=== PATIENT | female | born 1935 | race Caucasian/White ===

== ENCOUNTER 2018-04-23 20:01 | Inpatient (IN) | payer MEDICARE, BC ==
[2018-04-23] MEDS ORDERED: Ondansetron PF 4 MG/2 ML Vial ONE (20:37)
[2018-04-23] MEDS ORDERED: Morphine 2 MG/ML SYRINGE ONE (20:37)
[2018-04-23 21:00] LABS: #Eosinphils 0.3 thou/uL (0.0-0.7); #Lymphocytes 1.3 thou/uL (1.20-3.40); #Monocytes 0.5 thou/uL (0.11-0.59); #Neutrophils 5.6 thou/uL (1.40-6.50); %Basophils 0.3 % (0.0-1.0); %Eosinophils 3.8 % (0.0-10.0); %Lymphocytes 16.8 % (21.0-51.0); %Monocytes 5.9 % (0.0-10.0); %Neutrophils 73.2 % (42.0-75.0); Hemoglobin 10.2 g/dL (12.0-16.0); Mean Corpuscular HGB CONC 32.8 g/dL (32.0-36.0); Mean Corpuscular Hemoglobin 30.3 pg (27.0-31.0); Mean Corpuscular Volume 92.4 fL (78.0-98.0); Mean Platelet Volume 7.1 fL (7.4-10.4); Platelet Count 181 thou/uL (130-400); RBC Distribution Width 13.2 % (11.5-14.5); Red Blood Cell (RBC) Count 3.37 mill/uL (4.20-5.40); White Blood Cell (WBC) Count 7.6 thou/uL (4.8-10.8)
[2018-04-23 21:06] LABS: INR-International Normal Ratio 1.1; Prothrombin Time 14.6 SEC (12.0-14.7)
[2018-04-23] MEDS ORDERED: Morphine 4 MG/ML VIAL ONE (21:20)
[2018-04-23 21:21] LABS: ALT (SGPT) 12 U/L (8-55); AST (SGOT) 19 U/L (5-34); Albumin 3.1 g/dL (3.4-4.8); Alkaline Phosphatase 93 U/L (40-150); Anion Gap 8 mmol/L (10-20); BUN (Urea Nitrogen) 18 mg/dL (9.8-20.1); Bilirubin, Total 0.4 mg/dL (0.2-1.2); CK (CPK) 51 U/L (29-168); Calc. Creatinine Clearance 0 mL/min (70-130); Calcium 8.7 mg/dL (7.8-10.44); Carbon Dioxide 26 mmol/L (23-31); Chloride 103 mmol/L (98-107); Estimated GFR-MDRD 62; Globulin 3.1 g/dL (2.4-3.5); Glucose 143 mg/dL (83-110); Potassium 3.2 mmol/L (3.5-5.1); Protein, Total 6.2 g/dL (6.0-8.3); Sodium 134 mmol/L (136-145)
--- NOTE | 2018-04-23 22:04 | RAD ---
FRONTAL RADIOGRAPH PELVIS: 04/23/18 COMPARISON: None. HISTORY: Fall, trauma, pain. FINDINGS: The pelvic ring is intact. No widening of the sacroiliac joints or pubic symphysis. Femoral heads pro ject normally over their respective acetabulum. No displaced fracture is appreciated. There is multil evel degenerative change within the lumbar spine. IMPRESSION: No displaced fracture seen. POS: [facility]
--- NOTE | 2018-04-23 22:06 | RAD ---
FRONTAL AND LATERAL IMAGING OF RIGHT FEMUR 04/23/18 COMPARISON: None. HISTORY: Injury, trauma, pain. FINDINGS: There is a total knee arthroplasty on the right. There is a comminuted obliquely oriented distal righ t femoral shaft fracture at the superior aspect of the distal femoral component. There is mild fish house worker ior angulation of the distal fracture fragment. IMPRESSION: Obliquely oriented mildly angulated distal right femoral shaft fracture at the proximal aspect of the right femoral component. POS: [facility]
[2018-04-23] MEDS ORDERED: Fentanyl 100 MCG/2 ML VIAL ONE (22:14)
--- NOTE | 2018-04-23 22:15 | RAD ---
FRONTAL RADIOGRAPH CHEST PORTABLE UPRIGHT: 04/23/18 COMPARISON: 06/03/09. HISTORY: Preoperative patient. FINDINGS: No pneumothorax, pleural fluid, focal consolidation or alveolar edema. Heart and mediastinal contours are stable. There is atherosclerotic calcification of the aortic arch. IMPRESSION: No acute findings. POS: [facility]
[2018-04-23 22:42] LABS: CKMB 2.7 ng/mL (0-6.6); Troponin I Less than 0.010 ng/mL (< 0.028)
[2018-04-23] MEDS ORDERED: Ondansetron PF 4 MG/2 ML Vial IVP PRN (22:45)
[2018-04-23] MEDS ORDERED: Ondansetron ODT 4 MG TAB PO PRN (22:45)
[2018-04-23] MEDS ORDERED: Dextrose 5% in Water 1,000 ML IV PRN (22:45)
[2018-04-23] MEDS ORDERED: Dextrose 50% Abboject 50 ML SYRINGE SLOW IVP PRN (22:45)
[2018-04-23] MEDS ORDERED: Ondansetron ODT 8 MG TAB ONE (23:38)
[2018-04-24] MEDS: traMADol HCl 50 MG TAB PO SCH ×5 (00:18→23:04)
[2018-04-24] MEDS: Sodium Chloride 0.9% 1,000 ML IV SCH ×3 (00:21→20:38)
[2018-04-24] MEDS: Acetaminophen 1,000 MG in Premix Bag 1 BAG IVPB SCH ×5 (00:25→23:04)
[2018-04-24] MEDS: Morphine 2 MG/ML SYRINGE IVP PRN (00:25)
[2018-04-24] MEDS: Ketorolac Tromethamine 30 MG/ML VIAL IVP SCH ×5 (00:25→23:04)
[2018-04-24 00:55] VITALS: BMI 24.9
[2018-04-24 06:06] LABS: #Eosinphils 0.2 thou/uL (0.0-0.7); #Lymphocytes 0.9 thou/uL (1.20-3.40); #Monocytes 0.3 thou/uL (0.11-0.59); #Neutrophils 2.7 thou/uL (1.40-6.50); %Basophils 0.2 % (0.0-1.0); %Eosinophils 4.5 % (0.0-10.0); %Lymphocytes 22.7 % (21.0-51.0); %Monocytes 7.8 % (0.0-10.0); %Neutrophils 64.8 % (42.0-75.0); Hemoglobin 9.2 g/dL (12.0-16.0); Mean Corpuscular HGB CONC 32.9 g/dL (32.0-36.0); Mean Corpuscular Hemoglobin 30.5 pg (27.0-31.0); Mean Corpuscular Volume 92.6 fL (78.0-98.0); Mean Platelet Volume 7.3 fL (7.4-10.4); Platelet Count 164 thou/uL (130-400); RBC Distribution Width 13.1 % (11.5-14.5); White Blood Cell (WBC) Count 4.1 thou/uL (4.8-10.8)
--- NOTE | 2018-04-24 06:11 | HP ---
TRAUMA SURGEON: Dr. Samaniego. TRAUMA ACTIVATION: Not applicable. HISTORY OF PRESENT ILLNESS: This is an 83-year-old female, who presented to [place] [facility], status post fall. Per patient, she was ambulating in her house when her right lower extremity gave out and she fell, landing primarily on her hip and left elbow. The patient denies head trauma or loss of consciousness. She had immediate onset of right lower extremity pain. She was seen and evaluated in the emergency room and found to have a right mid shaft femur fracture. The patient is 1 day status post bilateral hand surgery with Dr. Streeter at [facility] and has been taking both [place] 5/325 and Ultram. Otherwise, the patient states that she was in her normal state of health prior to her fall. She denies any dizziness, vertigo, chest pain, shortness of breath, or palpitations. Upon my evaluation, the patient has a chief complaint of right lower extremity pain, rated 8/10. ALLERGIES: NONE. HOME MEDICATIONS: Include, 1. Aspirin 81 mg daily. 2. Multivitamin. 3. Ramipril 2.5 mg. 4. Triamterene/hydrochlorothiazide 37.5/25. 5. Zantac. 6. [place] 5/325 q.4 hours. PAST MEDICAL HISTORY: Hypertension, rheumatoid arthritis, osteoarthritis, and left middle finger tumor. PAST SURGICAL HISTORY: Left middle finger tumor removal, right index finger prosthesis, right knee replacement x2, left femur surgery, appendectomy, cholecystectomy, and left wrist surgery. SOCIAL HISTORY: The patient lives at home with her . She uses a walker and a cane for ambulation. She denies alcohol, tobacco, or illicit drug use. FAMILY HISTORY: Significant for mother from leukemia and a brother from pancreatic cancer. REVIEW OF SYSTEMS: A 10-point review of systems was performed and negative except as indicated in the HPI. PHYSICAL EXAMINATION: VITAL SIGNS: Temperature 97.6, pulse 78, respirations 16, O2 sat 99% on room air, and blood pressure 111/65. GENERAL: Elderly-appearing female, in no acute distress, resting in bed, drowsy secondary to pain medication. HEENT: Head, normocephalic and atraumatic. Eyes, pupils are PERRL. Extraocular movements are intact. NECK: Supple. Trachea is midline. There is no midline tenderness to palpation. CHEST: Atraumatic. Nontender to palpation. Normal work of breathing. Symmetric rise. LUNGS: Clear to auscultation bilaterally. CARDIOVASCULAR: Regular rate and rhythm. No obvious murmurs, rubs, or gallops. GI: Abdomen is soft, atraumatic, nontender, and nondistended. Bowel sounds are positive. MUSCULOSKELETAL: Pelvis is stable. Back exam is reported as being within normal limits. EXTREMITIES: Left upper extremity with a skin tear to the left elbow, which has been dressed. There is a left middle finger orthopedic dressing, which is clean, dry, and intact. Right upper extremity orthopedic dressing is clean, dry, and intact. Left lower extremity within normal limits. Right lower extremity is shortened and externally rotated. NEURO: GCS is 15. No focal deficit is noted. LABORATORY FINDINGS: WBC 7.6, hemoglobin 10.2, hematocrit 31.1, and platelet count 181. INR is 1.1. Sodium 134, potassium 3.2, chloride 103, carbon dioxide 26, BUN 18, creatinine 0.87, and glucose 143. AST and ALT within normal limits. Troponin less than 0.010. EKG with sinus rhythm and nonspecific T-wave abnormality. RADIOGRAPHIC FINDINGS: X-ray of the chest was negative for acute cardiopulmonary process, but did show aortic calcification. X-ray of the pelvis was negative for acute fracture or dislocation. X-ray of the femur demonstrated distal right femoral shaft fracture. ASSESSMENT: 1. Status post mechanical fall. 2. Right distal femur fracture. 3. Acute traumatic pain. 4. History of hypertension. 5. Recent bilateral hand surgery, on narcotic pain medication. 6. History of rheumatoid arthritis and osteoarthritis. PLAN: Admit to Trauma Services. Orthopedic Surgery has been notified of the patient and plan for operative intervention tomorrow. The patient should be n.p.o. after midnight. Gentle IV fluid hydration. Pain management with p.o. and IV analgesics. Postoperative PT and OT. DVT and gastritis prophylaxis when appropriate. Plan for admission was discussed with the patient and family at bedside, and all questions were answered at the time of this dictation. The patient has an [id number] do not resuscitate and advance directives. This will be reflected in the chart. Trauma attending has been notified of admission. Job ID: [id number]
[2018-04-24 06:15] LABS: Anion Gap 8 mmol/L (10-20); BUN (Urea Nitrogen) 17 mg/dL (9.8-20.1); Calc. Creatinine Clearance 52 mL/min (70-130); Calcium 8.5 mg/dL (7.8-10.44); Carbon Dioxide 26 mmol/L (23-31); Chloride 103 mmol/L (98-107); Estimated GFR-MDRD 62; Glucose 105 mg/dL (83-110); Magnesium 1.6 mg/dL (1.6-2.6); Phosphorus 3.1 mg/dL (2.3-4.7); Potassium 3.6 mmol/L (3.5-5.1); Sodium 133 mmol/L (136-145)
[2018-04-24] MEDS ORDERED: CEFAZOLIN/Water 2 GM/20 ML SYRINGE SLOW IVP SCH (07:30)
[2018-04-24] MEDS ORDERED: CEFAZOLIN 2 GM/50 ML-DEXTROSE 2 GM in Premix Bag 1 BAG IVPB SCH (07:45)
[2018-04-24] MEDS ORDERED: CEFAZOLIN 2 GM/50 ML BAG ONE (08:32)
--- NOTE | 2018-04-24 08:34 | CON ---
DATE OF CONSULTATION: 04/24/2018 BRIEF HISTORY OF PRESENT ILLNESS: The patient is a pleasant 83-year-old lady who presented to the [facility] Room on the evening of 04/23/2018 following a fall at her home. She reports that she was ambulating when her right lower leg gave out and she fell. She landed on her hip and elbow. Upon evaluation, she was found to have significant pain at the distal thigh with mild deformity. X-ray was obtained and revealed a periprosthetic distal femur fracture with displacement. Of note, the patient is also 1 day status post bilateral hand surgery with Dr. Dwight Streeter. She currently is on [place] and Ultram. The patient denies any dizziness, shortness of breath or chest pain. PAST MEDICAL HISTORY: Remarkable for hypertension, rheumatoid arthritis, and osteoarthritis. PAST SURGICAL HISTORY: Includes excision of mass from left long finger, right index finger prosthesis, right knee replacement x2 with the last one in 1990, appendectomy, cholecystectomy, left wrist surgery as well as left total knee arthroplasty. MEDICATIONS: Include: 1. Aspirin. 2. Ramipril. 3. Triamterene/hydrochlorothiazide. 4. Zantac. 5. [place]. ALLERGIES: NONE KNOWN. SOCIAL HISTORY: She lives with her of 67 years in a private residence. She uses a walker and/or cane for ambulation. She denies alcohol, drug use or cigarette smoking. FAMILY HISTORY: Noncontributory. REVIEW OF SYSTEMS: The patient denies recent fevers, chills or sweats. She denies chest pain or shortness of breath. She denies numbness or tingling in the lower extremities. PHYSICAL EXAMINATION: VITAL SIGNS: She was found to have a temperature of 97.8, heart rate of 74, respiratory rate of 16 and a blood pressure of 99/60. HEENT: Atraumatic, normocephalic. HEART: Regular rate and rhythm without murmur. LUNGS: Clear to auscultation with good breath sounds bilaterally. Chest wall is nontender. ABDOMEN: Soft and nontender with normal bowel sounds. PELVIS: Stable to compression. EXTREMITIES: Remarkable for a left upper extremity with a small skin tear at the left elbow. She also has her long finger with a postoperative dressing from her surgery yesterday. The right upper extremity is in a bulky short-arm splint with the index finger also wrapped into this dressing. The left lower extremity is remarkable for no deformity. The right lower extremity is remarkable for some shortening and slight angulation at the distal femur. She has pain and swelling in this area. Distal neurovascular exam is intact with normal subjective sensation. She has a 2+ dorsalis pedis pulse. LABORATORY DATA: White count is 7.6, hematocrit 31.1 and platelets 181,000. Her INR is 1.1. Her chemistry is roughly within normal limits. DIAGNOSTIC STUDIES: Chest x-ray negative for acute cardiopulmonary process. X-ray of the pelvis also without evidence of fracture. A 2-view x-ray of the right femur remarkable for a periprosthetic distal femur fracture with comminution and some angulation. The femoral component has a short stem that was cemented in place. The distal most portion of bone still appears to be firmly affixed to the femoral component of her knee replacement. ASSESSMENT: An 83-year-old lady, status post ground level fall sustaining right periprosthetic distal femur fracture. PLAN: At this time, the patient has been admitted to the Trauma Service. Today, I had a long discussion with the patient, her and son, who were at the bedside during this exam regarding the nature of her injury as well as proposed treatment options. At this time, I proposed proceeding with an open reduction and internal fixation with plate stabilization given the fact that the prosthetic component will not allow for a retrograde nail and the fracture is far enough distal that I believe plate stabilization is more appropriate. Today, we also discussed risks and benefits. Risks include, but are not limited to, bleeding, infection, DVT, PE, nonunion, malunion, loss of limb or life. They appear to understand and do wish to proceed. Consent will be obtained on the day prior to surgery. Job ID: [id number]
[2018-04-24] MEDS ORDERED: Fentanyl 100 MCG/2 ML VIAL ONE ×3 (08:41→12:17)
[2018-04-24] MEDS: Famotidine/PF 20 mg/2ml Vial SLOW IVP SCH ×2 (08:41→20:38)
[2018-04-24] MEDS ORDERED: Ketamine 50 MG/ML (10ML VIAL) ONE (09:02)
[2018-04-24] MEDS ORDERED: Promethazine HCl 25 MG/ML VIAL IM PRN (10:24)
[2018-04-24] MEDS ORDERED: Ondansetron HCl/PF 4 MG/2 ML Vial IVP PRN (10:24)
[2018-04-24] MEDS ORDERED: Promethazine HCl 25 MG/ML VIAL SLOW IVP PRN (10:24)
[2018-04-24] MEDS ORDERED: PHENYLEPHRINE-NS 100 MCG/ML 10 ML SYRINGE ONE (11:03)
[2018-04-24] MEDS ORDERED: Ondansetron PF 4 MG/2 ML Vial ONE (11:03)
[2018-04-24] MEDS ORDERED: Glycopyrrolate 0.2 MG/ML 5 ML SYRINGE ONE (11:03)
[2018-04-24] MEDS ORDERED: Lidocaine 1% PF 5 ML VIAL ONE (11:03)
--- NOTE | 2018-04-24 12:27 | RAD ---
SIX FLUOROSCOPIC SPOT IMAGES OF THE RIGHT FEMUR: COMPARISON: Right femur radiograph dated 04/23/2018. FINDINGS: There has been interval placement of a long-leaf lateral Lis plate and screw construct fixating the p eriprosthetic distal femur fracture. Fracture line is near anatomic. Instrumentation projects in th e expected position. IMPRESSION: Interval open reduction internal fixation of the periprosthetic right distal femoral fracture. POS: [facility]
[2018-04-24] MEDS ORDERED: Chloraseptic Spray 180 ml Bottle PO PRN (15:13)
[2018-04-24] MEDS: CEFAZOLIN 2 GM/50 ML BAG IVPB SCH ×2 (15:19→23:04)
[2018-04-24] MEDS: traMADol HCl 50 MG TAB PO PRN (15:19)
[2018-04-24] MEDS ORDERED: Hydrocortisone Sod Succ/PF 100 mg/2 ml Vial IVP SCH (16:00)
[2018-04-24] MEDS ORDERED: Sodium Chloride 0.9% 500 ML IV SCH (16:00)
--- NOTE | 2018-04-24 17:40 | HP ---
CHIEF COMPLAINT: Fall. HISTORY: This is an 83-year-old female, who had recently had bilateral hand surgery on Friday. Apparently, she was a little busy. was cooking a meal for her. He said it was ready. She got up, she tripped and fell and hit her right side. Complains mainly of right hip pain. PAST MEDICAL HISTORY: Significant for rheumatoid arthritis, osteoarthritis, diabetes, and hypertension. She has a history of DVT and PE. PAST SURGICAL HISTORY: She has had hand surgery, cholecystectomy, appendectomy, cataract surgery, right knee surgery, and left leg fracture repair. MEDICATIONS: 1. Aspirin. 2. Multivitamins. 3. Ramipril. 4. Triamterene and hydrochlorothiazide. 5. Zantac. 6. [place]. SOCIAL HISTORY: She lives at home with her . She uses a walker and a cane for ambulation. No alcohol or tobacco. FAMILY HISTORY: Leukemia and pancreatic cancer. PHYSICAL EXAMINATION: VITAL SIGNS: Temperature 97.7, pulse 84, and blood pressure 99/65. GENERAL: She is awake, alert, elderly female. HEENT: Unremarkable. LUNGS: Clear. HEART: Regular rate and rhythm. ABDOMEN: Soft, nontender, and nondistended. EXTREMITIES: She has bandages on both upper extremities, more of a full bandage on the right, and a hand bandage on the left, tender right hip in a splint. Pulses okay. No other evidence of injury. She had a femur x-ray showing obliquely angulated distal right femoral shaft fracture. PELVIS: Fine. IMAGING DATA: Chest x-ray, fine. ASSESSMENT: Distal right femur fracture. PLAN: Per Orthopedics. Job ID: [id number]
[2018-04-24 18:34] LABS: Hemoglobin 10.5 g/dL (12.0-16.0); Platelet Count 131 thou/uL (130-400)
[2018-04-24] MEDS: Hydrocortisone Sod Succ/PF 100 mg/2 ml Vial IVP SCH (23:05)
--- NOTE | 2018-04-24 23:05 | PRG ---
DATE OF SERVICE: 04/24/2018 SUBJECTIVE: The patient is status post fall in which the patient sustained a right periprosthetic distal femur fracture. The patient was admitted last night and was planned to undergo surgery this morning with Orthopedics. The patient was seen briefly just before she was leaving for the operating room. She was stating that her pain was controlled. She has been n.p.o. since midnight and she is agreeable to the surgery as discussed. There was a discussion by the family and the patient that she would like to be made full code status while in the hospital, which the OR crew was notified and once she returns, we will assure that the orders are changed completely for her stay here. PHYSICAL EXAMINATION: VITAL SIGNS: Temperature is 97.7, heart rate 84, blood pressure 99/65, respirations 15, and oxygen saturation is 94% on room air. GENERAL: The patient is resting comfortably in bed. She will awaken to verbal stimuli and follow very simple commands. HEENT: Unremarkable. LUNGS: Clear to auscultation bilaterally. HEART: Regular rate and rhythm. ABDOMEN: Soft, flat, and nontender with active bowel sounds. EXTREMITIES: Neurovascularly intact x4. LABORATORY FINDINGS: White blood cell count 4.1, hemoglobin 9.2, hematocrit 27.8, platelets 164. Sodium 133, potassium 3.6, chloride 103, CO2 of 26, BUN 17, creatinine 0.87, and glucose 105. IMAGING STUDIES: There were no radiographs to review this morning. ASSESSMENT: 1. Status post fall. 2. Right distal periprosthetic femur fracture. 3. Acute traumatic pain. PLAN: Plan will be to continue supportive care. Once postoperative, we will start Physical and Occupational Therapy and discuss with family placement afterwards. The evaluation, examination, and laboratory radiographic findings will be discussed with Dr. Ernandez after this dictation. Job ID: [id number]
[2018-04-25] MEDS: traMADol HCl 50 MG TAB PO SCH ×4 (04:54→23:27)
[2018-04-25] MEDS: Ketorolac Tromethamine 30 MG/ML VIAL IVP SCH ×4 (04:55→23:24)
[2018-04-25] MEDS: Hydrocortisone Sod Succ/PF 100 mg/2 ml Vial IVP SCH ×3 (04:55→23:28)
[2018-04-25 05:51] LABS: #Lymphocytes 0.5 thou/uL (1.20-3.40); #Monocytes 0.3 thou/uL (0.11-0.59); #Neutrophils 3.5 thou/uL (1.40-6.50); %Basophils 0.4 % (0.0-1.0); %Eosinophils 0.6 % (0.0-10.0); %Lymphocytes 12.2 % (21.0-51.0); %Monocytes 5.9 % (0.0-10.0); %Neutrophils 80.9 % (42.0-75.0); Hemoglobin 10.2 g/dL (12.0-16.0); Mean Corpuscular HGB CONC 33.3 g/dL (32.0-36.0); Mean Corpuscular Hemoglobin 30.9 pg (27.0-31.0); Mean Corpuscular Volume 92.8 fL (78.0-98.0); Mean Platelet Volume 7.5 fL (7.4-10.4); Platelet Count 139 thou/uL (130-400); RBC Distribution Width 12.8 % (11.5-14.5); Red Blood Cell (RBC) Count 3.32 mill/uL (4.20-5.40); White Blood Cell (WBC) Count 4.3 thou/uL (4.8-10.8)
[2018-04-25 06:17] LABS: Magnesium 1.6 mg/dL (1.6-2.6)
[2018-04-25 06:21] LABS: BUN (Urea Nitrogen) 17 mg/dL (9.8-20.1)
[2018-04-25 06:22] LABS: Anion Gap 11 mmol/L (10-20); Calc. Creatinine Clearance 49 mL/min (70-130); Carbon Dioxide 21 mmol/L (23-31); Chloride 106 mmol/L (98-107); Estimated GFR-MDRD 59; Glucose 150 mg/dL (83-110); Phosphorus 3.9 mg/dL (2.3-4.7); Potassium 3.9 mmol/L (3.5-5.1); Sodium 135 mmol/L (136-145)
[2018-04-25] MEDS: Famotidine/PF 20 mg/2ml Vial SLOW IVP SCH (08:16)
[2018-04-25] MEDS: Enoxaparin Sodium 40 MG/0.4 ML SYRINGE SC SCH (08:16)
[2018-04-25] MEDS: CEFAZOLIN 2 GM/50 ML BAG IVPB SCH (08:17)
[2018-04-25] MEDS: traMADol HCl 50 MG TAB PO PRN (09:54)
[2018-04-25] MEDS ORDERED: Insulin Regular 300 UNITS/3 ML VIAL SC PRN (10:53)
[2018-04-25] MEDS: Sodium Chloride 0.9% 1,000 ML IV SCH (13:04)
--- NOTE | 2018-04-25 14:08 | PRG ---
DATE OF SERVICE: 04/25/2018 SUBJECTIVE: The patient is currently on the surgical floor. She is hospital day #3, postop day #2, status post fall in which she sustained a right periprosthetic distal femur fracture. She did well overnight. She did require 2 units of blood to be transfused yesterday. She also received hydrocortisone for low blood pressure and cortisol level of 11. She has maintained consistently systolic blood pressures in the 90s. She is tolerating a diet this morning and states that her pain is controlled. She has not yet worked with Physical or Occupational Therapy. Of note, the patient did complain of left knee pain this morning. So, we will get her radiograph of that knee. PHYSICAL EXAMINATION: VITAL SIGNS: Temperature is 98.2, heart rate 69, blood pressure 93/56, respirations 15, and oxygen saturation is 93% on room air. GENERAL: The patient is resting comfortably in bed. She is awake, alert and responsive and appropriate. HEENT: Unremarkable. LUNGS: Clear to auscultation with good inspiratory and expiratory effort. HEART: Regular rate and rhythm. ABDOMEN: Soft, flat, and nontender. EXTREMITIES: Neurovascularly intact. Right upper extremity is splinted still from her previous surgery, but it is clean, dry, and intact. Her right lower extremity's postop dressing is clean, dry, and intact. LABORATORY FINDINGS: White blood cell count 4.3, hemoglobin 10.2, hematocrit 30.8, and platelets 139. Sodium 135, potassium 3.9, chloride 106, CO2 of 21, BUN 17, creatinine 0.91, glucose 150, magnesium 1.6, and phosphorous 3.9. IMAGING STUDIES: There were no radiographs to review this morning. ASSESSMENT: 1. Status post fall. 2. Status post open reduction and internal fixation of right distal periprosthetic femur fracture. 3. Hypomagnesemia. 4. Left knee pain. PLAN: Plan will be to replace her electrolyte. Continue her diet. Pain control. Physical and Occupational Therapy and radiographs of her left knee. The evaluation and examination will be discussed with attending. Job ID: [id number]
--- NOTE | 2018-04-25 16:21 | RAD ---
FOUR VIEWS OF THE LEFT KNEE: 04/25/18 COMPARISON: 04/24/18 HISTORY: Pain after falling. FINDINGS: Four views of the left knee shows a retrograde intramedullary aron in the distal femur. This spans a f racture of the distal femoral diametaphysis. One of the two screws is fractured. There may be bridgin g of the bone along the posterior aspect of the intramedullary aron but there is incomplete union ante riorly. Diffuse soft tissue swelling is seen. There is severe joint space narrowing in the medial and lateral femorotibial compartments. IMPRESSION: 1. No evidence of acute osseous abnormality. 2. Malunion of distal femur fracture. 3. Severe left knee osteoarthritis. POS: [facility]
[2018-04-25] MEDS ORDERED: Sodium Chloride 0.9% 500 ML IVPB SCH (18:45)
[2018-04-25] MEDS ORDERED: RANITIDINE 75 MG PO SCH (21:00)
[2018-04-25] MEDS: Morphine 2 MG/ML SYRINGE IVP PRN (22:10)
[2018-04-25] MEDS ORDERED: Magnesium Sulfate 3 GM in Sodium Chloride 0.9% 250 ML 250 ML IVPB SCH (23:00)
[2018-04-26] MEDS: traMADol HCl 50 MG TAB PO SCH ×2 (05:17→11:17)
[2018-04-26] MEDS: Ketorolac Tromethamine 30 MG/ML VIAL IVP SCH ×4 (05:18→23:46)
[2018-04-26] MEDS: Hydrocortisone Sod Succ/PF 100 mg/2 ml Vial IVP SCH ×3 (06:02→23:46)
[2018-04-26 06:34] LABS: #Eosinphils 0.1 thou/uL (0.0-0.7); #Lymphocytes 0.9 thou/uL (1.20-3.40); #Monocytes 0.3 thou/uL (0.11-0.59); #Neutrophils 1.8 thou/uL (1.40-6.50); %Basophils 0.4 % (0.0-1.0); %Eosinophils 4.6 % (0.0-10.0); %Lymphocytes 26.8 % (21.0-51.0); %Monocytes 9.9 % (0.0-10.0); %Neutrophils 58.2 % (42.0-75.0); Hemoglobin 9.4 g/dL (12.0-16.0); Mean Corpuscular HGB CONC 32.9 g/dL (32.0-36.0); Mean Corpuscular Hemoglobin 30.6 pg (27.0-31.0); Mean Platelet Volume 7.6 fL (7.4-10.4); Platelet Count 137 thou/uL (130-400); RBC Distribution Width 12.7 % (11.5-14.5); Red Blood Cell (RBC) Count 3.08 mill/uL (4.20-5.40); White Blood Cell (WBC) Count 3.2 thou/uL (4.8-10.8)
[2018-04-26 06:48] LABS: Anion Gap 8 mmol/L (10-20); BUN (Urea Nitrogen) 19 mg/dL (9.8-20.1); Calc. Creatinine Clearance 54 mL/min (70-130); Calcium 8.2 mg/dL (7.8-10.44); Carbon Dioxide 24 mmol/L (23-31); Chloride 108 mmol/L (98-107); Estimated GFR-MDRD 65; Glucose 111 mg/dL (83-110); Magnesium 2.4 mg/dL (1.6-2.6); Phosphorus 2.2 mg/dL (2.3-4.7); Potassium 3.9 mmol/L (3.5-5.1); Sodium 136 mmol/L (136-145)
[2018-04-26] MEDS: Enoxaparin Sodium 40 MG/0.4 ML SYRINGE SC SCH (08:24)
[2018-04-26] MEDS: traMADol HCl 50 MG TAB PO PRN ×2 (09:14→23:49)
[2018-04-26] MEDS ORDERED: Morphine 2 MG/ML SYRINGE IM SCH (12:00)
[2018-04-26] MEDS: Ferrous Sulfate 325 MG TAB PO SCH (16:49)
[2018-04-26] MEDS: Ascorbic Acid 500 mg Chewable Tablet PO SCH (20:09)
[2018-04-26] MEDS: RANITIDINE 75 MG PO SCH (20:10)
[2018-04-27] MEDS: HYDROcodone/Acetaminophen 5/325 mg Tablet PO PRN ×4 (05:05→23:38)
[2018-04-27] MEDS: Ketorolac Tromethamine 30 MG/ML VIAL IVP SCH ×4 (06:25→23:46)
[2018-04-27] MEDS: Hydrocortisone Sod Succ/PF 100 mg/2 ml Vial IVP SCH ×3 (06:26→23:46)
--- NOTE | 2018-04-27 07:50 | PRG ---
DATE OF SERVICE: 04/26/2018 SUBJECTIVE: The patient is currently on the surgical floor. She is hospital day #4, postoperative day #3, status post a fall when she sustained a right periprosthetic distal femur fracture. She has undergone ORIF for that fracture and tolerated it well. Overnight, she did well. This morning, she states that her pain is controlled, though she still has concerns about her left knee, which she tells us that, that was her bad knee prior to this fall, which now her "good knee is her bad knee" making working with therapy much more difficult. We discussed with family again this morning that rehab would be an option, but more likely, the patient will require swing bed placement. The patient is tolerating a diet and otherwise had no complaints. OBJECTIVE: VITAL SIGNS: Temperature 98.3, heart rate 69, blood pressure 118/77, respirations 18, oxygen saturations 95% on room air. GENERAL: The patient is resting comfortably in bed. She is awake, alert, and oriented. [place] Coma Scale is 15. HEENT: Unremarkable. LUNGS: Clear to auscultation with good inspiratory and expiratory effort. The patient is getting approximately 1000 to 1250 on her incentive spirometry. She appears to be impeded only by coordination and not necessarily pain or difficulty expanding her lungs. HEART: Regular rate and rhythm. ABDOMEN: Soft, flat, and nontender with active bowel sounds. EXTREMITIES: Neurovascularly intact x4. Postoperative dressing is clean, dry, and intact. LABORATORY FINDINGS: White blood cell count 3.2, hemoglobin 9.4, hematocrit 28.6, platelets 137. Sodium 136, potassium 3.9, chloride 108, CO2 of 24, BUN 19, creatinine 0.84, glucose 111, magnesium 2.4, phosphorus 2.2. RADIOGRAPHIC FINDINGS: There are no radiographs reviewed this morning. ASSESSMENT AND PLAN: 1. Status post fall. 2. Status post open reduction and internal fixation of right distal periprosthetic femur fracture. PLAN: Plan will be to continue supportive care with placement decisions. We will adjust the patient's pain medications and resume her home [place]. Job ID: [id number]
[2018-04-27] MEDS: Ferrous Sulfate 325 MG TAB PO SCH ×2 (08:04→16:30)
[2018-04-27] MEDS: Enoxaparin Sodium 40 MG/0.4 ML SYRINGE SC SCH (08:05)
[2018-04-27] MEDS: Ascorbic Acid 500 mg Chewable Tablet PO SCH ×2 (08:05→19:59)
[2018-04-27] MEDS: RANITIDINE 75 MG PO SCH ×2 (08:05→19:59)
[2018-04-27] MEDS: traMADol HCl 50 MG TAB PO PRN ×2 (08:13→18:39)
--- NOTE | 2018-04-27 10:21 | CT ---
CT OF THE LEFT KNEE WITHOUT CONTRAST: INDICATION: History of knee pain and recent fall. Evaluate nonunion. FINDINGS: There is a retrograde IM nail seen within the distal aspect of the femur. There is an ununited supra condylar femur fracture. No appreciable bridging bone is seen across the fracture site. There is di ffuse osteopenia. There is some caudad migration of the intramedullary aron into the intercondylar no tch with articulation of the distal end of the aron with the proximal tibia in the region of the inter spinous region. No acute fracture is evident. There is advanced osteoarthrosis of the left knee. T here is prominent muscular atrophy of the posterior compartment of the proximal foreleg. There are m oderate calcifications involving the vasculature of the left leg. There is prominent atrophy involvi ng the hamstring musculature and moderate atropy of the quad musculature of the distal thigh. IMPRESSION: 1. 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 2. Caudad migration of a retrograde nail with proximal aspect of the nail protruding into the interc ondylar notch and articulating with the proximal tibia in the interspinous region. 3. Severe osteoarthrosis of the left knee. 4. Severe osteopenia of the left leg. 5. Severe muscular atrophy of the posterior muscular compartment of the thigh and proximal foreleg. There is moderate atrophy of the quad musculature. POS: [facility]
--- NOTE | 2018-04-27 11:08 | PRG ---
DATE OF SERVICE: 04/27/2018 SUBJECTIVE: Ms. Romo is doing well. She is tolerating regular food. No real complaints. OBJECTIVE: VITAL SIGNS: She is afebrile. Vital signs are stable. CHEST: Clear. HEART: Regular rate and rhythm. ABDOMEN: Soft and nontender. ASSESSMENT: Stable status post right femoral midshaft fracture, status post open reduction and internal fixation. PLAN: Rehab care home evaluation is pending. Job ID: [id number]
--- NOTE | 2018-04-27 13:14 | OP ---
DATE OF PROCEDURE: 04/24/2018 PREOPERATIVE DIAGNOSIS: Right periprosthetic distal femur fracture. POSTOPERATIVE DIAGNOSIS: Right periprosthetic distal femur fracture. SURGICAL PROCEDURE: Open reduction and internal fixation of right distal femur. ANESTHESIA: General. OPERATION SUPERVISOR: Christy Mora PA-C IMPLANTS: The Synthes 16-hole 4.5 mm variable angle LCP distal femoral plate with combination of 5 mm locking screws and 4.5 mm cortical screws. COMPLICATIONS: None. DRAINS: None. SPECIMENS: None. OUTCOME: Near anatomical alignment. INDICATIONS FOR PROCEDURE: The patient is an 83-year-old lady, status post ground level fall sustaining a periprosthetic distal femur fracture. Her total knee has been functioning well up until this fracture. On evaluation, she has found to have a fracture that begins in the distal diaphysis of the femur and spirals down towards the implant. After discussion with the patient including risks and benefits, we decided to proceed with open reduction and internal fixation. Informed consent has been obtained. I believe all questions answered. DESCRIPTION OF PROCEDURE: After the patient was brought to the operating room, a time-out was performed, followed by induction of general anesthesia. Next, the patient was positioned supine on the OR table and a sterile prep and drape were performed to the right lower extremity. Next, a vertical incision was made along the lateral aspect of the distal femur, this beginning just distal to the lateral epicondyle and then extending proximal along the line of the shaft femur. After this, 5-inch incision was made, dissection was carried down bluntly to the underlying IT band. The IT band was incised inline with a skin incision, reflected anteriorly and posteriorly, gaining access to the lateral aspect of the distal femur. Next, using minimal subperiosteal dissection, the fracture edges were able to be visualized and palpated. With some difficulty, the fracture was able to be reduced and held in place with bone tenaculums. Once reduced, a 16-hole distal lateral femoral plate was passed in a submuscular fashion along the lateral cortex of the femur, such that the proximal end of the plate was head about the level of the lesser trochanter. Once appropriately positioned, it was held in place with a K-wire distally and a K-wire proximally. AP and lateral C-arm images were then obtained to confirm that the plate was in appropriate length. Next, a cortical screw was placed through the aiming arm just proximal to the fracture itself, this to initially hold the plate against the bone and to provide some compression of the plate against the bone as well. This could be partially done; however, further compression was not felt to be appropriate given the single screw, and such a second screw was placed near this first screw and then tightening down the two screws alternately resulted in the ability to bring the plate up firmly against the lateral wall of the femur. This was then followed by insertion of multiple locking screws distally. Because of the short stem within the femoral component, anterior screws were not possible, however, four good posterior screws were able to be achieved in the distal fragment. This was then followed by insertion of multiple cortical screws up along the plate up to the level of the lesser trochanter. At the completion of this, AP and lateral C-arm images were obtained that showed acceptable alignment of the fracture and acceptable positioning of the hardware. The one larger distal incision was irrigated with bulb syringe and then closed in layers with #1 Vicryl for the IT-Band followed by 2-0 Vicryl and bruce. Each of the small stab wounds from the screw insertions were proximally closed with bruce. The Xeroform guaze and Jordan wrap dressing was then applied to the thigh and then the knee was placed in knee immobilizer and the patient was transferred to recovery room in stable condition. There were no complications. The patient tolerated the procedure well. Job ID: [id number]
[2018-04-28] MEDS: traMADol HCl 50 MG TAB PO PRN ×2 (03:13→08:51)
[2018-04-28] MEDS: HYDROcodone/Acetaminophen 5/325 mg Tablet PO PRN ×2 (05:47→12:10)
[2018-04-28] MEDS: Ketorolac Tromethamine 30 MG/ML VIAL IVP SCH (05:54)
[2018-04-28] MEDS: Hydrocortisone Sod Succ/PF 100 mg/2 ml Vial IVP SCH (05:54)
[2018-04-28] MEDS: Enoxaparin Sodium 40 MG/0.4 ML SYRINGE SC SCH (08:48)
[2018-04-28] MEDS: Ascorbic Acid 500 mg Chewable Tablet PO SCH (08:50)
[2018-04-28] MEDS: Ferrous Sulfate 325 MG TAB PO SCH (08:50)
[2018-04-28] MEDS ORDERED: Polyethylene Glycol 3350 17 GM Packet PO SCH (09:00)
[2018-04-28] MEDS ORDERED: Senokot 8.6 MG TAB PO SCH (09:00)
[2018-04-28] MEDS: RANITIDINE 75 MG PO SCH (09:04)
[2018-04-28 11:36] VITALS: BP 113/76; TEMP 98.2
--- NOTE | 2018-04-29 09:41 | DIS ---
DATE OF ADMISSION: 04/23/2018 DATE OF DISCHARGE: 04/28/2018 RESIDENT: Javier Kwan MD. ADMITTING ATTENDING: Dr. Samaniego. DISCHARGE ATTENDING: Dr. Turner. CONSULTS: Orthopedic Surgery, Dr. Rhodes. PROCEDURES: 1. On 04/23/2018, femur x-ray; impression, obliquely oriented mildly angulated distal right femoral shaft fracture at the proximal aspect of the right femoral component. 2. On 04/23/2018, pelvis x-ray; impression, no displaced fracture seen. 3. On 04/23/2018, chest x-ray; impression, no acute findings. 4. On 04/24/2018, femur x-ray; impression, interval open reduction and internal fixation of the periprosthetic right distal femoral fracture. 5. On 04/25/2018, knee x-ray; impression, no evidence of acute osseous abnormality, malunion of distal femur fracture, severe left knee osteoarthritis. 6. 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 There is moderate atrophy of the quad muscle. 7. On 04/24/2018, open reduction and internal fixation of right distal femur. PRIMARY DIAGNOSIS: Right femoral fracture secondary to fall. SECONDARY DIAGNOSES: History of hypertension, rheumatoid arthritis, and osteoarthritis. DISCHARGE MEDICATIONS: 1. Multivitamin one capsule p.o. daily. 2. Aspirin 81 mg p.o. daily. 3. Ramipril 2.5 mg p.o. daily. 4. [place] 5 one tablet p.o. q.4 hours p.r.n., resume home prescription for pain as needed. 5. Ranitidine 75 mg p.o. daily. 6. Vitamin C 500 mg p.o. b.i.d. 7. Ferrous sulfate 325 mg p.o. b.i.d. 8. Ibuprofen 600 mg p.o. q.6 hours p.r.n. 9. Polyethylene glycol 17 g p.o. daily. 10. Sennosides two tablets p.o. b.i.d. 11. Tramadol 50 mg p.o. q.6 hours p.r.n. Discontinued medications, none. HISTORY OF PRESENT ILLNESS AND HOSPITAL COURSE: This is an 83-year-old female with history of rheumatoid arthritis and recent bilateral hand surgery, who presented to the ED after a fall with complaints of right leg pain. The patient was found to have a femoral fracture and had open reduction and internal fixation of said fracture. The patient had uncomplicated postop course and recovered well as expected with good pain control. Placement was found at [facility] with plans for continued physical therapy and occupational therapy for continued recovery. On day of discharge, the patient was seen and evaluated by Dr. Turner. The patient was found to have no complaints at that time and vital signs were stable as well as a benign exam. The patient was deemed stable for discharge. DISPOSITION: Stable. DISCHARGE INSTRUCTIONS: Location: [facility]. Diet: No restrictions. Activity: Orthopedic limitations, nonweightbearing to right lower extremity. Followup: Follow up with primary care provider in [address] Frank Rhodes in 14 days. Job ID: [id number]
--- NOTE | 2018-05-02 12:38 | EKG ---
Test Reason : Blood Pressure : / mmHG Vent. Rate : 075 BPM Atrial Rate : 075 BPM P-R Int : 000 ms QRS Dur : 072 ms QT Int : 388 ms P-R-T Axes : 000 -23 040 degrees QTc Int : 433 ms Accelerated Junctional rhythm Low voltage QRS Nonspecific ST and T wave abnormality Abnormal ECG Confirmed by WINNIE RENE ([id number]), fashion editor NATHALIA DANIELS ([id number]) on 05/02/2018 12:38:07 PM Referred By: Confirmed By:WINNIE RENE
== END 2018-04-28 13:30 | DRG 482 ==
LOC: ERS 20:01 → SURG A 23:53
PROVIDERS: ADMIT Surgery; ATTEND Surgery
PROC: 0QSB04Z Reposition Right Lower Femur with Internal Fixation Device, Open Approach (ICD-10-PCS; principal; 2018-04-24)
PROC: 30233N1 Transfusion of Nonautologous Red Blood Cells into Peripheral Vein, Percutaneous Approach (ICD-10-PCS; 2018-04-24)
DX: S72.401A Unspecified fracture of lower end of right femur, initial encounter for closed fracture (principal); W01.0XXA Fall on same level from slipping, tripping and stumbling without subsequent striking against object, initial encounter; Y92.009 Unspecified place in unspecified non-institutional (private) residence as the place of occurrence of the external cause; M06.9 Rheumatoid arthritis, unspecified; E11.9 Type 2 diabetes mellitus without complications; I10 Essential (primary) hypertension; E83.42 Hypomagnesemia; M25.562 Pain in left knee; M19.90 Unspecified osteoarthritis, unspecified site; Z79.82 Long term (current) use of aspirin; Z86.718 Personal history of other venous thrombosis and embolism; Z86.711 Personal history of pulmonary embolism; Z90.49 Acquired absence of other specified parts of digestive tract; Z96.651 Presence of right artificial knee joint
CPT/HCPCS: 36415; 36416; 36430; 71045; 72170; 76001; 80048; 80053; 82533; 82550; 82553; 83735; 84100; 84484; 85025; 85610; 85730; 86850; 86900; 86901; 90471; 90662; 93005; 96374; 96375; 96376; C1713; C1769; G0008; G0390; G8978-GP-CL; G8979-GP-CJ; G8987-GO-CM; G8988-GO-CL; J0131; J1650; J1720; J1815; J1885; J2001; J2270; J2405; J3010; J3475; J7050; P9016; Q0162; S0028

== ENCOUNTER 2019-10-31 23:11 | Observation (INO) | payer MEDICARE, BC ==
--- NOTE | 2019-11-01 01:08 | PDOC.EVN ---
Event Note - Event Note Event Note: H&P dictated [id number]
[2019-11-01 02:22] VITALS: BMI 21.9
--- NOTE | 2019-11-01 02:23 | HP ---
CHIEF COMPLAINT: Lightheadedness and dizziness. HISTORY OF PRESENT ILLNESS: Ms. Romo is an 84-year-old female with past medical history of diet-controlled diabetes mellitus, type 2; rheumatoid arthritis; GERD; presented to [facility] with dizziness, lightheadedness, and feeling that she will now pass out. The patient took her blood pressure, which was fine. She denies loss of consciousness. Denies chest pain, shortness of breath, or weakness. Heart rate was in the 40s. The patient denies any cardiac history. Denies nausea, vomiting, or diarrhea. The patient is transferred to our medical facility for further management. PAST MEDICAL HISTORY: 1. Diabetes mellitus, type 2, diet controlled. 2. Rheumatoid arthritis. 3. GERD. PAST SURGICAL HISTORY: 1. Right arm surgery. 2. Left hand surgery. 3. Right knee surgery. 4. Left wrist surgery. 5. Appendectomy. 6. Cholecystectomy. SOCIAL HISTORY: Denies smoking, alcohol drinking, or drug abuse. FAMILY HISTORY: Reviewed and noncontributory. ALLERGIES: IBUPROFEN. HOME MEDICATIONS: Please see home medication reconciliation form for updated medications. REVIEW OF SYSTEMS: Review of 14 systems negative except what is mentioned in history of present illness. PHYSICAL EXAMINATION: GENERAL: The patient is awake, alert, does not appear to be in acute distress. VITAL SIGNS: Blood pressure 100/63; pulse is 64, was in the 40s earlier; respiratory rate is 18; O2 saturation is 97% on room air, temperature is 98.2. HEAD AND NECK: Normocephalic, atraumatic. Neck is supple. No JVD. CHEST: Fair bilateral air entry. HEART: S1, S2. Regular. ABDOMEN: Soft, nontender. Bowel sounds present. NEUROLOGIC: Awake, alert, oriented x3. No focal deficits. PSYCH: Normal mood. EXTREMITIES: No clubbing. No cyanosis. GENITOURINARY: No suprapubic tenderness. No flank tenderness. LABORATORY DATA: WBC is 4.8, hemoglobin 12.3, platelets 161. Sodium 140, potassium 3.6, BUN is 20, creatinine 0.9. Troponin 0.02. ASSESSMENT: 1. Near syncope. 2. Symptomatic bradycardia. The patient's heart rate was in the 40s earlier. 3. Diabetes mellitus, type 2, diet controlled. 4. Rheumatoid arthritis. PLAN: 1. Admit. 2. Tele monitor. 3. vital signs. 4. 2D echo. 5. Serial troponins. 6. Consult Cardiology in the a.m. for evaluation and further recommendations. 7. Reconcile home medications. 8. DVT prophylaxis as appropriate. 9. Expected length of stay, 1 midnight if the patient is stable and further workup negative. Job ID: [id number]
[2019-11-01 04:53] LABS: Troponin I 0.011 ng/mL (< 0.028)
[2019-11-01 08:20] LABS: #Eosinphils 0.3 thou/uL (0.0-0.7); #Lymphocytes 1.1 thou/uL (1.20-3.40); #Monocytes 0.3 thou/uL (0.11-0.59); #Neutrophils 1.6 thou/uL (1.40-6.50); %Basophils 0.9 % (0.0-1.0); %Eosinophils 8.9 % (0.0-10.0); %Lymphocytes 32.6 % (21.0-51.0); %Monocytes 10.3 % (0.0-10.0); %Neutrophils 47.3 % (42.0-75.0); Hemoglobin 11.2 g/dL (12.0-16.0); Mean Corpuscular HGB CONC 33.1 g/dL (32.0-36.0); Mean Corpuscular Hemoglobin 31.6 pg (27.0-31.0); Mean Corpuscular Volume 95.5 fL (78.0-98.0); Mean Platelet Volume 6.8 fL (7.4-10.4); Platelet Count 147 thou/uL (130-400); RBC Distribution Width 13.4 % (11.5-14.5); Red Blood Cell (RBC) Count 3.54 mill/uL (4.20-5.40); White Blood Cell (WBC) Count 3.3 thou/uL (4.8-10.8)
[2019-11-01 08:30] LABS: Anion Gap 9 mmol/L (10-20); BUN (Urea Nitrogen) 17 mg/dL (9.8-20.1); Calc. Creatinine Clearance 46 mL/min (70-130); Calcium 9.3 mg/dL (7.8-10.44); Carbon Dioxide 28 mmol/L (23-31); Chloride 108 mmol/L (98-107); Estimated GFR-MDRD 68; Glucose 88 mg/dL (83-110); Potassium 3.8 mmol/L (3.5-5.1); Sodium 141 mmol/L (136-145)
[2019-11-01] MEDS ORDERED: Enoxaparin Sodium 40 MG/0.4 ML SYRINGE SC SCH (09:00)
[2019-11-01] MEDS ORDERED: HYDROcodone/Acetaminophen 10/325 mg Tablet PO PRN (14:38)
[2019-11-01] MEDS ORDERED: Polyethylene Glycol 3350 17 GM Packet PO PRN (14:38)
--- NOTE | 2019-11-01 15:29 | CON ---
DATE OF CONSULTATION: REASON FOR CONSULTATION: Vertigo and hypotension. HISTORY OF PRESENT ILLNESS: Ms. Romo is a very pleasant 84-year-old woman with no previous history of coronary artery disease. 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 She recently presented with weakness, fatigue, and near syncope. She states she had 4 total episodes on the day prior to admission. She had dizziness, lightheadedness, and nearly fell. No chest pain, pressure, shortness of breath, or associated symptoms. No nausea, vomiting present. PAST MEDICAL HISTORY: Diabetes mellitus, rheumatoid arthritis, and acid reflux. HOME MEDICATIONS: 1. Xeljanz. 2. MiraLAX. 3. Protonix. 4. Oxybutynin. 5. Multivitamin. 6. [place]. 7. Vitamin B12. 8. Aspirin. REVIEW OF SYSTEMS: A 10-point review of systems is reviewed as above, otherwise negative. PERTINENT LABORATORY DATA: Hemoglobin 11.2. Creatinine 0.8. Troponin negative. IMPRESSION: Presyncope. RECOMMENDATIONS: The patient's telemetry monitoring and EKG did show sinus rhythm with PACs. Her low heart rate may have been related to PACs. No true syncope noted. She also states she was hypotensive, blood pressure in the 80s. Her LVEF does appear normal on recent echo. Recommended 3 weeks of event recorder to assess for any significant dysrhythmias. Further workup can be ensued as an outpatient. She has been monitored overnight with no significant dysrhythmias present. We will arrange for an outpatient followup with Ms. Romo. Job ID: [id number]
--- NOTE | 2019-11-01 15:29 | PDOC.HOSPP ---
- Subjective Encounter Date: 11/01/19 Encounter Time: 15:23 Subjective: Ms. Romo was seen today in follow-up of pre-syncope. She does not have any new complaints. She has not had any further episodes.She says it was her blood pressure that was low, not her heart rate. - Objective Vital Signs & Weight: Vital Signs (12 hours) Temp Pulse Resp BP BP BP BP 11/01/19 12:29 98.0 F 73 13 138/66 11/01/19 08:00 97.3 F L 79 18 155/78 H 146/64 H 138/65 143/68 H 11/01/19 03:31 97.6 F 56 L 20 102/51 L Pulse Ox 11/01/19 12:29 98 11/01/19 08:00 99 11/01/19 03:31 96 Weight Weight 124 lb 1.6 oz I&O: 10/31/19 11/01/19 11/02/19 06:59 06:59 06:59 Intake Total 120 Output Total 550 Balance -430 Result Diagrams: 11/01/19 08:00 11/01/19 08:01 Hospitalist ROS - Medication Medications: Active Medications Generic Name Dose Route Start Last Admin Trade Name Freq PRN Reason Stop Dose Admin Enoxaparin Sodium 40 mg 11/01/19 09:00 11/01/19 12:23 Lovenox SC 40 mg 0900 [facility] Administration - Exam Eye: PERRL, anicteric sclera Heart: RRR, no murmur, no gallops, no rubs, normal peripheral pulses Respiratory: CTAB, no wheezes, no rales, no ronchi, normal chest expansion, no tachypnea, normal percussion Gastrointestinal: soft, non-tender, non-distended, normal bowel sounds, no palpable masses, no hepatomegaly Extremities: no cyanosis, no edema Hosp A/P (1) Pre-syncope Status: Acute (2) Diabetes mellitus type 2 in nonobese Code(s): E11.9 - TYPE 2 DIABETES MELLITUS WITHOUT COMPLICATIONS Status: Chronic (3) Rheumatoid arthritis Code(s): M06.9 - RHEUMATOID ARTHRITIS, UNSPECIFIED Status: Chronic - Plan * Pre-syncope- ? orthostatic hypotension vs. Bradycardia- will await Cardiology evaluation * Echo findings noted * DM- diet controlled- stable
[2019-11-01 19:17] VITALS: BP 139/65; TEMP 98.2
[2019-11-01] MEDS ORDERED: Oxybutynin 5 MG TAB PO SCH (21:00)
--- NOTE | 2019-11-02 03:02 | DIS ---
DATE OF ADMISSION: 11/01/2019 DATE OF DISCHARGE: 11/01/2019 PRIMARY CARE PHYSICIAN: Qasim Dan MD DISCHARGE DISPOSITION: Home. DISCHARGE DIAGNOSES: 1. Presyncope. 2. Possible bradycardia. 3. Diabetes mellitus, type 2. 4. Rheumatoid arthritis. DISCHARGE MEDICATIONS: Include: 1. daily. 2. MiraLAX 17 g p.o. as needed. 3. Protonix 40 mg daily. 4. Oxybutynin 5 mg p.o. b.i.d. 5. Multivitamin once daily. 6. [place] 10/325 q.6 as needed. 7. Vitamin B12 of 5000 mcg p.o. daily. 8. Aspirin 81 mg a day. IMAGING DURING THE HOSPITAL STAY: The patient had an echocardiogram and this demonstrated an ejection fraction of 50% to 55%. There was mild mitral regurgitation and mild tricuspid regurgitation. CODE STATUS: Full code. ALLERGIES: NO KNOWN DRUG ALLERGIES. HOSPITAL COURSE: Ms. Romo is a pleasant 84-year-old female, who presented to the emergency room after feeling lightheaded and a sensation that she may pass out. The full details of which are outlined in the history and physical. She was placed in observation and placed on a panel gluer. There was no evidence of any bradycardia and it is unclear whether or not she had a heart rate of 40 or whether or not it was her blood pressure that was low. She said that it was around 80/40. Cardiology was consulted and the plan would be to place an event monitor on the patient. She was discharged home later that day as she was feeling much better. She did not have any recurrence of her symptoms overnight and orthostatics were negative. Therefore, the patient was discharged home and to have close outpatient followup. Job ID: [id number]
[2019-11-02] MEDS ORDERED: Cyanocobalamin (Vitamin B-12) 1,000 MCG TAB PO SCH (09:00)
[2019-11-02] MEDS ORDERED: Multivit, Therapeutic 1 TAB PO SCH (09:00)
[2019-11-02] MEDS ORDERED: (Tofacitinib Citrate [Xeljanz Xr] 11 MG) PO SCH (09:00)
[2019-11-02] MEDS ORDERED: Aspirin Chewable 81 MG TAB PO SCH (09:00)
== END 2019-11-01 20:15 | disposition home or self-care (01) ==
LOC: ERS 23:11 → 2NO 11-01 00:38
PROVIDERS: ADMIT Internal Medicine; ATTEND Internal Medicine
DX: R55 Syncope and collapse (principal); R42 Dizziness and giddiness; E11.9 Type 2 diabetes mellitus without complications; M06.9 Rheumatoid arthritis, unspecified; K21.9 Gastro-esophageal reflux disease without esophagitis; I95.9 Hypotension, unspecified; Z79.82 Long term (current) use of aspirin; Z79.899 Other long term (current) drug therapy; Z88.6 Allergy status to analgesic agent
CPT/HCPCS: 80048; 84484 ×2; 85025; 93005; 93306; 94760; 96372; 99285; G0378 ×2; 36415; J1650